=== PATIENT | female | born 1945 | race Caucasian/White ===

== ENCOUNTER 2021-05-20 17:36 | Emergency (ER) | payer OTHER ==
[~2021-05-20 17:36] MED LIST: LISINOPRIL5 MG PO
[2021-05-20 18:55] LABS: HEMOGLOBIN 16.9 gm/dl (12.3-15.3); RED BLOOD COUNT 5.43 M/UL (4.00-5.10)
[2021-05-20] MEDS ORDERED: BENTYL 20MG TAB20 MG PO (22:54)
== END 2021-05-20 23:00 | disposition home or self-care (01) ==
LOC: ER1 17:36
PROVIDERS: Physician Assistant Medical
DX: R10.13 Epigastric pain (principal); J44.9 Chronic obstructive pulmonary disease, unspecified; I10 Essential (primary) hypertension; F17.210 Nicotine dependence, cigarettes, uncomplicated; Z20.822 Contact with and (suspected) exposure to COVID-19
CPT/HCPCS: 71045; 80053; 82550; 82553; 83874; 83880; 84484; 85025; 96374; 96375; 99284; J2270; J2405; Q9967; U0002